=== PATIENT | male | born 1970 | race Caucasian/White ===

== ENCOUNTER 2016-12-09 11:33 | Emergency (ER) | payer SELFPAY ==
[2016-12-09 12:00] LABS: Urine Bilirubin Negative (Negative); Urine Glucose Negative (Negative); Urine Nitrite Negative (Negative)
[2016-12-09] MEDS ORDERED: NS 0.9% 1000 ML* 1,000 ML IV ONE ×2 (12:22→15:23)
[2016-12-09] MEDS ORDERED: Ketorolac INJ* 30 MG/ML 1 ML VIAL IV PUSH ONE (12:22)
--- NOTE | 2016-12-09 12:49 | RAD ---
INDICATION: Flank pain COMPARISON: External CT December 07, 2016 TECHNIQUE: Erect and supine views of the abdomen are submitted. FINDINGS: Bones: There are no acute bony findings. Soft tissues: The soft tissues appear normal. The psoas margins are sharp. Bowel gas pattern: Normal Calcifications: There is a lower pole left renal calculus measuring 3 to 4 mm. Other: None IMPRESSION: LOWER POLE LEFT RENAL CALCULUS.
[2016-12-09 12:56] LABS: Hematocrit 43 % (42-52); Hemoglobin 14.3 g/dl (14.0-18.0); Mean Corpuscular HGB Conc 34 g/dl (31-36); Mean Corpuscular Hemoglobin 28 pg (27-31); Mean Corpuscular Volume 83 fL (80-94); Mean Platelet Volume 8 um3 (7.4-10.4); Red Blood Count 5.14 10^6/ul (4.0-5.4); Red Cell Distribution Width 14 % (10.5-15); White Blood Count 7.4 10^3/ul (3.5-10.8)
[2016-12-09 13:08] LABS: Albumin 3.9 g/dL (3.2-5.2); BUN/Creatinine Ratio 15.3 (8-20); C Reactive Protein 3.08 mg/L (< 5.00); EGFR African American 75.8 (>60); EGFR Non-African American 58.9 (>60); Globulin 2.7 g/dL (2-4); Potassium 3.9 mmol/L (3.5-5.0); Total Bilirubin 0.6 mg/dL (0.2-1.0); Total Protein 6.6 g/dL (6.4-8.9)
[2016-12-09] MEDS ORDERED: Morphine INJ* 4 MG/ML 1 ML SYRINGE IV ONE (13:57)
[2016-12-09] MEDS ORDERED: diPHENhydraMINE IV* 50 MG/ML 1 ml VIAL (BENADRYL) IV ONE (14:06)
[2016-12-09] MEDS ORDERED: diPHENhydraMINE IV* 50 MG/ML 1 ml VIAL (BENADRYL) ONE (14:07)
[2016-12-09] MEDS ORDERED: NS 0.9% 1000 ML* 2,000 ML IV ONE (15:38)
[2016-12-09] MEDS ORDERED: fentaNYL* 50 MCG/ML 2 ML VIAL (100 MCG VIAL) IV SLOW PU ONE (15:38)
[2016-12-09 18:22] VITALS: BP 136/90
[2016-12-09] MEDS ORDERED: oxyCODONE TAB* 5 MG TAB PO ONE (18:57)
--- NOTE | 2016-12-09 22:35 | CONS ---
History & Physical DATE OF Note: 12/09/16 HISTORY OF PRESENT ILLNESS: I was called by Dr. Price, emergency room physician , to see this 46-year-old white male with right renal colic. The patient's symptoms started about one month ago when he had a sudden episode of right back pain. The pain lasted for a day or so and then resolved spontaneously. Since that time, he has been having on and off discomfort, but has been manageable. He presented to the emergency room at [facility] 2 days ago with symptoms of right renal colic. He had a noncontrast CT of the abdomen and pelvis, which showed a 5-mm calculus in the distal right ureter just proximal to the ureterovesical junction. There was associated moderate hydronephrosis, but no evidence of extravasation. His urinalysis was negative for infection and he was afebrile. The patient was sent home on oral pain medications and on Tamsulosin. The patient presented today to the emergency room at [facility] [place] because of recurrence of his flank pain, but mostly because of urgency, frequency, distal urethral discomfort, and feeling of incomplete bladder emptying. He did not have any fever, chills, nausea, or vomiting. In the emergency room, he was evaluated and had a CBC, which was normal. His urinalysis showed no infection. His serum creatinine was 1.3. The patient's vital signs were normal and he was afebrile. He was managed with pain medication; however, he continued to be symptomatic. He really wanted to have the stone taken care of today. The anesthesiologist and the OR team were called to proceed with the stone extraction. The patient, however, had just eaten and was feeling better, so it was decided to cancel the procedure. When I examined him, he was feeling comfortable and he was essentially pain free. His vital signs were normal We discussed the options of management which included admitting him for observation, IV fluids, pain control, and if he continues to be in pain, taken to the operating room in the morning for stone extraction. The other option will be to send him home on continued conservative management, which the patient elected to do. The plan therefore is to send him home to continue on the tamsulosin and on the pain medication as needed. He is to call my office tomorrow to report on his condition. If the stone has not passed in the next 4 or 5 days, the plan is to proceed with Rt ureteroscopy, laser lithotripsy and stent placement. [id number]/[facility] #: [id number] [facility] HILLSIDE HOSPITALJamir
--- NOTE | 2016-12-10 19:28 | ED ---
Kingston Haider Anna, scribed for Tha Price MD on 12/09/16 at 1208 . GI/ HPI - HPI Summary HPI Summary: Patient is a 46 y/o male coming to [facility] presenting with the gradual onset of constant right flank pain that began three days ago. He describes the severity of the pain as 7/10. The pain radiates to his right abdomen and left flank. Patient medications were reviewed on this visit. He feels the frequent urge to urinate and has penile pain. He was seen at [facility] two days ago and Dx with a 4.8 mm kidney stone. Patient medications were reviewed on this visit. - History of Current Complaint Chief Complaint: EDFlankPain Time Seen by Provider: 12/09/16 11:58 Stated Complaint: FLANK PAIN ON BOTH SIDE Hx Obtained From: Patient, Family/Hospital Insurance Representative - accompanied by Onset/Duration: Started Days Ago, Still Present Timing: Constant Severity: Moderate Current Severity: Moderate Pain Intensity: 7 - Allergy/Home Medications Allergies/Adverse Reactions: Allergies Allergy/AdvReac Type Severity Reaction Status Date / Time Codeine Allergy Intermediate See Comment Verified 12/09/16 11:38 PMH/Surg Hx/FS Hx/Imm Hx History: Reports: Hx Kidney Stones Sensory History: Denies: Hx Deafness - Surgical History Surgery Procedure, Year, and Place: R knee, tonsilectomey & adenoids, R hand, ear tubes Infectious Disease History: No Infectious Disease History: Denies: Traveled Outside the [place] in Last 30 Days - Family History Known Family History: Negative: Hypertension, Diabetes, Renal Disease - Social History Lives: With Family Alcohol Use: None Substance Use Type: Reports: None Type: Cigarettes Amount Used/How Often: occasional Review of Systems Positive: Abdominal Pain Positive: urgency, other - penile pain All Other Systems Reviewed And Are Negative: Yes Physical Exam - Summary Physical Exam Summary: VITAL SIGNS: Reviewed. GENERAL: Patient is a well-developed and nourished male who is lying comfortable in the stretcher. ~Patient is not in any acute respiratory distress. HEAD AND FACE: Normocephalic and atraumatic. EYES: PERRLA, EOMI x 2, No injected conjunctiva. EARS: Hearing grossly intact. Ear canals and tympanic membranes are WNL. MOUTH: Oropharynx within normal limits. NECK: Supple, trachea is midline, no adenopathy, no JVD. CHEST: Symmetric, no tenderness at palpation LUNGS: Clear to auscultation bilaterally. No wheezing or crackles. CVS: RRR, S1 and S2 present, no murmurs or gallops appreciated. ABDOMEN: Right and left flank tenderness. No signs of distention. Positive bowel sounds. No rebound no guarding, and no masses palpated. No abdominal bruit or pulsations. EXTREMITIES: FROM in all major joints, no edema, no cyanosis or clubbing. NEURO: Alert and oriented x 3. No acute neurological deficits. Speech is normal. SKIN: Dry and warm Triage Information Reviewed: Yes Vital Signs On Initial Exam: Initial Vitals Temp Pulse Resp BP Pulse Ox 98.6 F 95 16 155/90 98 12/09/16 11:39 12/09/16 11:39 12/09/16 11:39 12/09/16 11:39 12/09/16 11:39 Vital Signs Reviewed: Yes Diagnostics - Vital Signs Vital Signs Temp Pulse Resp BP Pulse Ox 12/09/16 11:39 98.6 F 95 16 155/90 98 - Laboratory Lab Results: Lab Results 12/09/16 Range/Units 11:40 Urine Color Straw Urine Appearance Clear Urine pH 5.0 (5-9) Ur Specific [place] 1.011 (1.010-1.030) Urine Protein Negative (Negative) Urine Ketones Negative (Negative) Urine Blood Negative (Negative) Urine Nitrate Negative (Negative) Urine Bilirubin Negative (Negative) Urine Urobilinogen Negative (Negative) Ur Leukocyte Esterase Negative (Negative) Urine Glucose Negative (Negative) Result Diagrams: 12/09/16 12:37 12/09/16 12:37 Lab Statement: Any lab studies that have been ordered have been reviewed, and results considered in the medical decision making process. Re-Evaluation - Re-Evaluation First Eval Re-Evaluation Time: 15:32 Comment: Discussed current results and plan of care. Patient would like additional pain medication. Second Eval Re-Evaluation Time: 17:39 Comment: Discussed results and plan of care with patient. Patient reveals that he just ate malay fries and stepped outside to smoke a cigarette. Third Eval Re-Evaluation Time: 18:21 Comment: Patient reports that he is still in pain. GIGU Course/Dx - Course Assessment/Plan: In the ED course, the pt was given IV fluids. He was given Toradol, Morphine, and Fentanyl for the pain. The pain was not improving. Therefore, I discussed the case with Dr. Valenzuela who would come and assess the pt. He thinks he will take the pt to the OR. Talked to pt about Dr. Simpson recommendations and he reports that he just finished eating [place] fries. Dr. Valenzuela came, saw pt. He will not be going to the OR. Recommended pt d/c home with pain med and will f/u with him at his office. He was instructed to return to the ER if he develops fever, chills, increasing pain, nausea, and vomiting. - Diagnoses Provider Diagnoses: Renal calculi - Physician Notifications Discussed Care Of Patient With: Dr. Valenzuela (urologist) at 1516. Requests the official report for the CT. [facility] at 1708. Discussed pt CT results from visit to [facility]. Dr. Valenzuela (urologist) at 1728. He will come see the patient and confirm. Dr. Valenzuela (urologist) at 1737. He agrees to admit pt for surgery. Dr. Valenzuela (urologist) at 1800. Because the patient just ate, he cannot go to the OR. Discharge - Discharge Plan Condition: Stable Disposition: HOME Prescriptions: oxyCODONE TAB* [Roxycodone TAB 5 mg*] 5 mg PO Q6H PRN #15 tab MDD 4 tabs / day PRN Reason: Pain Patient Education Materials: Kidney Stones (ED) [place]: [facility] [place]] Hector Valenzuela MD [Medical Doctor] - 1 Day The documentation as recorded by the Kingston hernández Anna accurately reflects the service I personally performed and the decisions made by me, Tha Price MD.
== END 2016-12-09 19:06 | disposition home or self-care (01) ==
LOC: ED 11:33
DX: N20.0 Calculus of kidney (principal); R10.84 Generalized abdominal pain; N48.89 Other specified disorders of penis
CPT/HCPCS: 36415; 74020; 80053; 81003; 83605; 83690; 85025; 86140; 96374; 96375; 99282; A9270-GY; J1200; J1885; J2270; J3010

== ENCOUNTER 2016-12-11 11:00 | Day surgery (SDC) | payer SELFPAY ==
[2016-12-11] MEDS ORDERED: Ketorolac INJ* 30 MG/ML 1 ML VIAL ONE (11:09)
[2016-12-11] MEDS ORDERED: cefTRIAXone(*) 2 GM ADDV.VIAL IVPB ONE (11:09)
[2016-12-11] MEDS ORDERED: Ondansetron INJ* 2 MG/ML VIAL ONE (11:09)
[2016-12-11] MEDS ORDERED: Morphine INJ* 10 MG/ML 1 ML SYRINGE ONE ×2 (11:27→12:58)
[2016-12-11] MEDS ORDERED: diPHENhydraMINE IV* 50 MG/ML 1 ml VIAL (BENADRYL) ONE (12:58)
[2016-12-11] MEDS ORDERED: fentaNYL* 50 MCG/ML 2 ML VIAL (100 MCG VIAL) ONE (14:42)
[2016-12-11] MEDS ORDERED: Midazolam* 1 MG/ML 5 ML VIAL (5 MG) ONE (14:43)
[2016-12-11] MEDS ORDERED: Iohexol 180 (CONTRAST) 10 ML SDV IV ONE (14:49)
[2016-12-11] MEDS ORDERED: Morphine INJ* 2 MG/ML 1 ML SYRINGE IV PRN (15:06)
[2016-12-11] MEDS ORDERED: Ondansetron INJ* 2 MG/ML VIAL IV PRN ×2 (15:07→15:31)
[2016-12-11] MEDS ORDERED: fentaNYL* 50 MCG/ML 2 ML VIAL (100 MCG VIAL) IV PRN (15:31)
[2016-12-11] MEDS ORDERED: HYDROmorphone* 1 MG/ML 1 ML SYR IV PRN (15:31)
[2016-12-11] MEDS ORDERED: DiMENhydriNATE IV* 50 MG/ML VIAL IV PUSH PRN (15:31)
[2016-12-11 16:24] VITALS: BP 130/90
--- NOTE | 2016-12-12 04:32 | OP ---
DATE OF OPERATION: 12/11/16 - LOCATED WITHIN [facility] DATE OF : 70 SURGEON: Hector Valenzuela MD ANESTHESIOLOGIST: Norm Osman MD ANESTHESIA: General. PRE-OP DIAGNOSES: 1. Distal right ureteral calculus (6-mm). 2. Recurrent episodes of right renal colic due to above. POST-OP DIAGNOSES: 1. Distal right ureteral calculus (6-mm). 2. Recurrent episodes of right renal colic due to above. OPERATIVE PROCEDURE: 1. Cystoscopy. 2. Right ureteroscopy and extraction of a distal right ureteral calculus (6-mm) . 3. Right retrograde pyelography and placement of right ureteral stent (6-Estonian ). INDICATIONS: Mr. Wade is a 46-year-old white male who had an episode of acute right flank pain about one month ago. The pain resolved spontaneously. He has been having on and off episodes of right back pain. He presented to the emergency room in [place] 4 days ago with symptoms of right renal colic and had a noncontrast CT, which showed a 5 mm to 6 mm calculus in the distal right ureter associated with moderate hydronephrosis. He was managed conservatively. [place] [facility] [place] with recurrence of his severe pain. The plan was to take him to the operating room for stone extraction; however, he had eaten, so the procedure was cancelled. The patient continues to have on and off pain and he is now admitted for stone extraction. PATHOLOGY: At cystoscopy, the penile and bulbar urethrae looked normal. The prostatic urethra was short and open. Examination of the bladder showed normal ureteral orifices. The bladder wall was normal and there were no suspicious bladder lesions seen. Upon right ureteroscopy, there was mild narrowing of the distal right ureter above a centimeter proximal to the orifice. A 5 mm to 6 mm dark-colored calculus was noted at that level. The stone had the appearance of a calcium oxalate stone. There was moderate dilatation of the ureter proximal to the stone and on retrograde pyelography, there was moderate right hydronephrosis. Rectal exam at the end of the procedure showed a nonenlarged and nonsuspicious prostate. DESCRIPTION OF PROCEDURE: After successful general anesthesia, the patient was placed in the lithotomy position and was prepped and draped for cystoscopy. Cystoscopy was performed. The bladder was carefully inspected and the above findings were noted. A flexible-tip guidewire was then introduced into the right orifice and positioned in the area of the right renal pelvis. The cystoscope was then removed keeping the guidewire in place. A size 6.5 semi-rigid ureteroscope was then introduced inside the bladder. A flexible-tip basket was then passed through the port of the ureteroscope and the flexible tip was introduced inside the right orifice and guiding the ureteroscope to be introduced inside the ureter. The partial narrowing of the distal ureter was bypassed with the scope. The calculus was identified. It was felt that the stone can be extracted without having to break it with a laser. The stone was engaged in the basket and was pulled out without difficulty and sent for a stone analysis. Right retrograde pyelography was then performed demonstrating the hydronephrosis. A size 6-Estonian stent was then placed with the proximal end coiling in the renal pelvis and the distal end coiling inside the bladder. There was good drainage of contrast from the kidney. The bladder was then emptied and the cystoscope was removed. Rectal exam was then performed. The patient tolerated the procedure well and left the operating room in good condition. The plan is to leave the stent in place for about a week. It will be to allow for the edema of the distal ureter to resolve. The stent will be removed in the office under local anesthesia. [id number]/[facility] #: [id number] MARLENA
--- NOTE | 2016-12-12 07:42 | RAD ---
INDICATION: Right ureteroscopy. Lithotripsy. COMPARISON: None FINDINGS: 0.8 minutes of fluoroscopy were provided for the urology department. Fluoroscopic spot imaging of the abdomen were obtained for operative control and show right ureteroscopy with stent placement . CPT II Codes: 6045F (fluoro time doc)
== END 2016-12-11 16:40 | disposition home or self-care (01) ==
LOC: OR 11:00
PROVIDERS: ATTEND Urology
DX: N13.2 Hydronephrosis with renal and ureteral calculous obstruction (principal)
CPT/HCPCS: 74420; 82365; 88300; C1876; J0696; J1200; J1885; J2250; J2270; J2405; J3010